=== PATIENT | female | born 1995 | race American Indian/Alaskan Native ===

== ENCOUNTER 2017-07-03 15:40 | Outpatient (CLI) | payer SELFPAY ==
[2017-07-03 16:16] VITALS: BP 94/51
[2017-07-03 17:38] LABS: Urine Drugs of Abuse Note Disclamer
[2017-07-03 18:00] LABS: Bilirubin,Urine NEG (Negative); Blood,Urine NEG (Negative); Ketones,Urine NEG (Negative); Leukocyte Esterase,Urine LG (Negative); Mucus,Urine FEW /HPF; Nitrite,Urine NEG (Negative); Protein,Urine <15 mg/dL mg/dL (Negative); Urobilinogen,Urine < 2.0 mg/dL (<2.0)
[2017-07-03 18:14] LABS: Basophils % (Auto) 0.5 % (0.0-1.8); Eosinophils % (Auto) 0.2 % (0.0-4.3); Hematocrit 32.6 % (30.3-42.9); Mean Corpuscular HGB Conc 31 % (30-34); Mean Corpuscular Volume 72 fl (79-97); Platelet Count 190 K/mm3 (140-440); Red Blood Count 4.51 M/mm3 (3.65-5.03); Red Cell Distribution Width 16.4 % (13.2-15.2); White Blood Count 8.3 K/mm3 (4.5-11.0)
[2017-07-03 18:16] LABS: Mean Corpuscular Hemoglobin 22 pg (28-32)
[2017-07-03 19:04] LABS: HIV-1 Antigen p24 Non React (Non React); HIVR-1/2 Ab Non React (Non React)
== END 2017-07-03 19:19 | disposition home or self-care (01) ==
LOC: TRG 15:40
PROVIDERS: ATTEND Obstetrics & Gynecology
DX: O47.1 False labor at or after 37 completed weeks of gestation (principal); Z3A.39 39 weeks gestation of pregnancy
CPT/HCPCS: 36415; 59025; 80307; 81001; 85025; 85660; 86592; 86706; 86762; 86850; 86900; 86901; 87116; 87806

== ENCOUNTER 2017-07-07 17:36 | Outpatient (CLI) | payer SELFPAY ==
[2017-07-07] MEDS ORDERED: NITRATEST PAPER MC ONE (19:00)
[2017-07-07 19:11] VITALS: BP 94/62
== END 2017-07-07 19:20 | disposition home or self-care (01) ==
LOC: TRG 17:36
PROVIDERS: ATTEND Obstetrics & Gynecology
DX: Z34.93 Encounter for supervision of normal pregnancy, unspecified, third trimester (principal); Z3A.39 39 weeks gestation of pregnancy
CPT/HCPCS: 59025

== ENCOUNTER 2017-07-12 19:41 | Outpatient (CLI) | payer SELFPAY ==
[2017-07-12 20:01] VITALS: BP 100/61
--- NOTE | 2017-07-13 09:50 | Ultrasound Report ---
BIOPHYSICAL PROFILE: 2 - breathing movements 2 - movements 2 - posture and tone 2 - Qualitative amniotic fluid volume 8 - TOTAL SCORE OF POSSIBLE 8 Heart Rate (bpm) 120 Gestation: Single Position: Cephalic Amniotic Fluid: PLACIDO = 12.1 cm Placenta: Anterior Placental Grade: 1 Heart Rate: 120 BPM Cervical length: cm (Normal > 3 cm)
== END 2017-07-12 21:36 | disposition home or self-care (01) ==
LOC: TRG 19:41
PROVIDERS: ATTEND Obstetrics & Gynecology
DX: O48.0 Post-term pregnancy (principal); Z3A.40 40 weeks gestation of pregnancy
CPT/HCPCS: 59025; 76815; 76819

== ENCOUNTER 2017-07-13 14:35 | Outpatient (CLI) | payer SELFPAY | END 2017-07-13 16:26 | disposition home or self-care (01) | LOC: TRG 14:35 | PROVIDERS: ATTEND Obstetrics & Gynecology | DX: O48.0 Post-term pregnancy (principal); Z3A.40 40 weeks gestation of pregnancy | CPT/HCPCS: 59025 ==